=== PATIENT | female | born 2000 | race Caucasian/White ===

== ENCOUNTER 2024-12-19 16:21 | Emergency (ER) | payer OTHER, SELFPAY ==
[2024-12-19 16:29] VITALS: BP 142/101
[2024-12-19 16:55] LABS: % Basophils 0.6 % (0-2); % Eosinophils 0.3 % (0-6); % Immature Granulocytes 0.3 % (0-0.5); % Lymphocytes 26.3 % (20.5-51.1); % Monocytes 8.5 % (1.7-9.3); Absolute Lymphocytes 1.7 10^3/uL (1.2-3.4); Absolute Monocytes 0.6 10^3/uL (0.1-0.6); Absolute Neutrophils 4.2 10^3/uL (1.4-6.5); Hematocrit 40.6 % (37.0-47.0); Hemoglobin 14.6 g/dL (12.0-16.0); Mean Corpuscular Hgb 31.6 pg (27.0-31.0); Mean Corpuscular Volume 87.9 fL (81.0-99.0); Mean Platelet Volume 11.3 fL (7.4-10.4); Nucleated Red Blood Cells % 0 %; Platelet Count 223 10^3/uL (130-400); Red Blood Cell Count 4.62 10^6/uL (4.20-5.40); Red Cell Dist. Width 11.3 % (11.5-14.5); White Blood Cell Count 6.6 10^3/uL (4.8-10.8)
[2024-12-19 17:22] LABS: HCG, Serum Qualitative Screen Negative
[2024-12-19 17:26] LABS: ALT (SGPT) 18 U/L (0-35); AST (SGOT) 21 U/L (14-36); Alkaline Phosphatase 40 U/L (38-126); Blood Urea Nitrogen 13 mg/dl (7-17); Calcium 9.7 mg/dl (8.4-10.2); Carbon Dioxide 27 mmol/L (22-30); Chloride 104 mmol/L (98-107); Glucose 98 mg/dl (70-99); Potassium 3.8 mmol/L (3.5-5.1); Sodium 139 mmol/L (135-145); Total Bilirubin 0.7 mg/dl (0.2-1.3); Total Protein 7.7 g/dl (6.3-8.2); eGFR > 60.00
--- NOTE | 2024-12-19 20:28 | ED.GENMED ---
History of Present Illness
General
Chief Complaint: Vaginal Bleeding
Source: patient
Exam Limitations: none
Time Seen by Provider: 12/19/24 20:22
Nursing documentation reviewed up to this point in time: agreed with
History of Present Illness
History of Present Illness:
Patient to ED with complaint of vaginal bleeding. States she got her period on Thursday and flow has been heavy. Reports changing tampon every 1-2 hours. +cramping. Brought self to ED for eval.
Past History
Past History
ED Past Medical History: None
ED Past Surgical History: None
Review of Systems
Review of Systems
Allergies reviewed?: Yes
All Other Systems: ROS reviewed and negative except as documented in HPI and ROS
Constitutional: Reports no symptoms
EENT: Reports no symptoms
Respiratory: Reports no symptoms
Cardiac: Reports no symptoms
ABD/GI: Reports no symptoms
: Reports bleeding (Heavy vaginal bleeding)
Musculoskeletal: Reports no symptoms
Skin: Reports no symptoms
Neurological: Reports no symptoms
Psychiatric: Reports no symptoms
Phy Exam
General Physical Exam
General Presentation: well appearing and no apparent distress
General age: appears stated age
General Skin: warm and dry
General Habitus: normal
General Mental: alert
Cardiovascular Exam
Cardiovascular Exam: regular rate/rhythm and no edema
Pulmonary Exam
Pulmonary Exam: lungs clear and no respiratory distress
Gastrointestinal Exam
Gastrointestinal Exam: normal bowel sounds, non tender, soft, no organomegaly and non distended
Genitourinary Exam Female
Exam Female: no adnexal tenderness, no bleeding, no CMT, no lesions, no mass and no vaginal discharge
Vaginal Exam: normal
Vaginal Bleeding: none
Musculoskeletal Exam
Musculoskeletal Exam: full ROM and neuro vasc intact
Skin Exam
Skin Exam: normal color, warm/dry and no rash
Psychiatric Exam
Psychiatric Exam: normal mood/affect
Course
Orders/Labs/Results
Orders:
Orders
12/19/24 16:31
Test Result ONCE
12/19/24 16:44
Complete Blood Count/With Diff Urgent
Comprehensive Metabolic Panel Urgent
HCG, Serum Qualitative Screen Urgent
12/19/24 20:31
Pelvis (Non Obstetric) US [US Pelvis Only (non-obstetric)] Urgent
Comment:
Reason For Exam: heavy bleeding
Abnormal Lab Results
12/19/24
16:44
MCH 31.6 H pg
(27.0-31.0)
RDW 11.3 L %
(11.5-14.5)
MPV 11.3 H fL
(7.4-10.4)
12/19/24 16:44
12/19/24 16:44
Vital Signs
Initial and Last Documented VS:
Initial Vital Signs
Temp Pulse Resp BP Pulse Ox
98.2 F 83 18 142/101 97
12/19/24 16:29 12/19/24 16:29 12/19/24 16:29 12/19/24 16:29 12/19/24 16:29
Last Documented Vital Signs
Temp Pulse Resp BP Pulse Ox
98.2 F 63 18 123/76 98
12/19/24 16:29 12/19/24 22:13 12/19/24 22:13 12/19/24 22:13 12/19/24 22:13
*Radiology
Radiology exam reviewed: radiology read reviewed
*Pulse Oximetry
Patient hypoxic: no
*Critical Care Note
Total Time (30-74mins, 75-104mins- exclusive of procedures): Not Applicable
ED Attending Note
-
Portions of this chart may have been created with voice recognition software.� Occasional wrong word or��sound alike� substitutions may have occurred due to the inherent limitations of voice recognition software.
Discharge Plan
Departure
Patient Disposition: Home (Routine Discharge)
Date of Disposition: 12/19/24
Time of Disposition: 22:55
Patient with high blood pressure during this ER visit?: No
Condition: Good
Covid-19: Not Applicable
Discharge Problem:
Episode of heavy vaginal bleeding
Instructions: Heavy Periods (DC)
Referrals:
Marciano Banuelos DO [Family Provider] -
Activity Restrictions/Additional Instructions:
Follow up with your machinist first class. Return to the emergency department immediately for any changes in/worsening of your symptoms.
Interventions
Interventions:
*Risk Screen - Suicide Last Done: 12/19/24 22:42
*General Assessment Last Done: 12/19/24 16:29
*Neglect/Abuse Screening Last Done: 12/19/24 22:42
*ED- Fall Risk Assessment Last Done: 12/19/24 22:42
*ED COVID-19 Vaccine History Last Done: 12/19/24 22:42
ED-Female Genitourinary Assessment Last Done: 12/19/24 22:42
Discharge Date and Time
Print Language: AMERICAN
[2024-12-19 22:13] VITALS: BP 123/76
[2024-12-19 22:42] VITALS: BMI 15.1
== END 2024-12-19 23:08 | disposition home or self-care (01) ==
LOC: EMR 16:21
PROVIDERS: Emergency Medicine; EMERGENCY PHYSICIAN Student in an Organized Health Care Education/Training Program; FAMILY PHYSICIAN Family Medicine
DX: N93.9 Abnormal uterine and vaginal bleeding, unspecified (principal)
CPT/HCPCS: 99284; 76856; 80053; 84703; 85025